=== PATIENT | female | born 1980 | race Caucasian/White ===

== ENCOUNTER 2020-06-18 04:51 | Emergency (ER) | payer OTHER ==
--- NOTE | 2020-06-18 06:52 | EDM.PDOCBH ---
ED HPI GENERAL MEDICAL PROBLEM - General Chief Complaint: Behavioral/Psych Stated Complaint: RASH,ITCHING POSS ANXIETY Time Seen by Provider: 06/18/20 05:38 Source of Information: Reports: Patient, RN Notes Reviewed - History of Present Illness INITIAL COMMENTS - FREE TEXT/NARRATIVE: 39 yr old female comes in with anxiety. This has been much worse than usual this past week with multiple panic attacks. She awakened early this morning. Unable to get back to sleep. Also has a rash mainly mid abd that is itchy. The rash was present before starting on recently prescribed buspar. She does admit to drinking a lot of coffee last evening. - Related Data Allergies Allergy/AdvReac Type Severity Reaction Status Date / Time No Known Allergies Allergy Verified 06/18/20 05:11 Home Meds: Home Meds Atenolol/Chlorthalidone [Atenolol-Chlorthalidone 100-25] 0.5 mg PO DAILY 06/18/20 [History] FLUoxetine [PROzac] 20 mg PO DAILY 06/18/20 [History] busPIRone [Buspar] 10 mg PO BID 06/18/20 [History] Past Medical History Cardiovascular History: Reports: Hypertension Respiratory History: Reports: Pneumonia, Recurrent Genitourinary History: Reports: UTI, Recurrent CABLE TESTER History: Reports: Endometrial Ablation Musculoskeletal History: Reports: Fracture Psychiatric History: Reports: Anxiety, Depression - Infectious Disease History Infectious Disease History: Reports: TB, Other (See Below) Other Infectious Disease History: latent TB in 2011- been treated - Past Surgical History HEENT Surgical History: Reports: Oral Surgery Social & Family History - Tobacco Use Tobacco Use Status *Q: Current Every Day Tobacco User Years of Tobacco use: 25 Packs/Tins Daily: 1 Used Tobacco, but Quit: No - Caffeine Use Caffeine Use: Reports: Coffee - Recreational Drug Use Recreational Drug Use: Yes Recreational Drug Type: Reports: Marijuana/Hashish Recreational Drug Use Frequency: Not Used In Over 6 Months ED ROS GENERAL - Review of Systems Review Of Systems: See Below Constitutional: Denies: Fever, Chills HEENT: Reports: No Symptoms Respiratory: Denies: Shortness of Breath, Wheezing Cardiovascular: Denies: Chest Pain GI/Abdominal: Denies: Abdominal Pain, Nausea, Vomiting Musculoskeletal: Reports: No Symptoms Skin: Reports: Pruritis, Rash Neurological: Reports: No Symptoms Psychiatric: Reports: Anxiety, Depression. Denies: Suicidal Ideation ED EXAM, BEHAVIORAL HEALTH - Physical Exam Exam: See Below General Appearance: Alert, Anxious, Mild Distress Throat/Mouth: Normal Inspection Head: Atraumatic Neck: Supple Respiratory/Chest: No Respiratory Distress, Lungs Clear, Normal Breath Sounds Cardiovascular: Regular Rate, Rhythm GI/Abdominal: Soft, Non-Tender Extremities: Normal Inspection, Normal Range of Motion Neurological: Alert, No Motor/Sensory Deficits Psychiatric: Alert, Normal Cognition, Restless (mild), Other (anxious) Skin Exam: Warm, Dry, Normal color, Rash (find macular rash present mainly mid abd. ) COURSE, BEHAVIORAL HEALTH COMP - Course Vital Signs: Last Vital Signs Temp 97.2 F 06/18/20 05:01 Pulse 84 06/18/20 05:01 Resp 20 06/18/20 05:01 BP 164/79 H 06/18/20 05:01 Pulse Ox 98 06/18/20 05:01 Orders, Labs, Meds: Laboratory Tests 06/18/20 06/18/20 Range/Units 06:04 06:04 WBC 7.58 (3.98-10.04) K/mm3 RBC 4.63 (3.98-5.22) M/mm3 Hgb 14.3 (11.2-15.7) gm/dl Hct 42.6 (34.1-44.9) % MCV 92.0 (79.4-94.8) fl MCH 30.9 (25.6-32.2) pg MCHC 33.6 (32.2-35.5) g/dl RDW Std Deviation 42.2 (36.4-46.3) fL Plt Count 277 (182-369) K/mm3 MPV 9.4 (9.4-12.3) fl Neut % (Auto) 55.3 (34.0-71.1) % Lymph % (Auto) 31.7 (19.3-51.7) % [place] % (Auto) 9.8 (4.7-12.5) % Eos % (Auto) 2.1 (0.7-5.8) Baso % (Auto) 0.4 (0.1-1.2) % Neut # (Auto) 4.20 (1.56-6.13) K/mm3 Lymph # (Auto) 2.40 (1.18-3.74) K/mm3 [place] # (Auto) 0.74 H (0.24-0.36) K/mm3 Eos # (Auto) 0.16 (0.04-0.36) K/mm3 Baso # (Auto) 0.03 (0.01-0.08) K/mm3 Sodium 141 (136-145) mEq/L Potassium 3.6 (3.5-5.1) mEq/L Chloride 103 (98-107) mEq/L Carbon Dioxide 27 (21-32) mEq/L Anion Gap 14.6 (5-15) BUN 13 (7-18) mg/dL Creatinine 0.7 (0.55-1.02) mg/dL Est Cr Clr Drug Dosing 95.17 mL/min Estimated GFR (MDRD) > 60 (>60) mL/min BUN/Creatinine Ratio 18.6 H (14-18) Glucose 112 H (70-99) mg/dL Calcium 8.9 (8.5-10.1) mg/dL Total Bilirubin 0.3 (0.2-1.0) mg/dL AST 14 L (15-37) U/L ALT 32 (14-59) U/L Alkaline Phosphatase 61 (46-116) U/L Total Protein 6.8 (6.4-8.2) g/dl Albumin 3.7 (3.4-5.0) g/dl Globulin 3.1 gm/dL Albumin/Globulin Ratio 1.2 (1-2) TSH 3rd Generation 2.566 (0.358-3.74) uIU/mL Re-Assessment/Re-Exam: potassium mildly low at 3.6. TSH and other labs are good. She states there is a lot of mental health illness that runs in her family. She feels a need to see/visit with a Psychiatrist regarding her past hx and current sx. I have suggested a telemed consult with Dr Garcia. She is very agreeable to that plan. No feelings or plan for self harm at this time. Departure - Departure Time of Disposition: 07:10 Disposition: Home, Self-Care 01 Condition: Fair Clinical Impression: Anxiety, Depressive disorder, Skin rash - Discharge Information Referrals: PCP,Not In Area [Primary Care Provider] - Forms: ED Department Discharge Additional Instructions: Your potassium was mildly low at 3.6. Try eat 1 or 2 bananas per day. Other fruit and vegetables are also high in potassium. Dry skin is itchy skin. Continue the HC cream 2 twice daily. Use lubriderm or similar scent free lotion to help itchy skin moisturized. Consider claritin or zyrtec for rash and itchiness as needed. Call [phone] for help to get an appointment for telemed consult with Dr Garcia, Psychiatrist. Follow up with Dr Hall as needed. Return to ED as needed if symptoms worsening in any way. Sepsis Event Note (ED) - Evaluation Sepsis Screening Result: No Definite Risk - Focused Exam Vital Signs: Vital Signs Temp Pulse Resp BP Pulse Ox 06/18/20 05:01 97.2 F 84 20 164/79 H 98
== END 2020-06-18 07:20 | disposition home or self-care (01) ==
LOC: JD.ED 04:51
DX: F41.9 Anxiety disorder, unspecified (principal); F32.9 Major depressive disorder, single episode, unspecified; R21 Rash and other nonspecific skin eruption; I10 Essential (primary) hypertension; Z79.899 Other long term (current) drug therapy; Z72.0 Tobacco use
CPT/HCPCS: 36415; 80053; 84443; 85025; 99283

== ENCOUNTER 2021-03-05 17:38 | Emergency (ER) | payer BC, OTHER ==
[2021-03-05] MEDS ORDERED: Ibuprofen 800 MG Tab PO ONE (21:54)
== END 2021-03-06 02:46 | disposition home or self-care (01) ==
LOC: JD.ED 17:38
DX: F32.A Depression, unspecified (principal); F41.9 Anxiety disorder, unspecified; I10 Essential (primary) hypertension; Z20.822 Contact with and (suspected) exposure to COVID-19
CPT/HCPCS: 36415; 80053; 80306; 80307; 81003; 81025; 83690; 84443; 85025; 87635; 99284; A9270; U0002

== ENCOUNTER 2023-07-06 21:47 | Emergency (ER) | payer BC, OTHER ==
[2023-07-06 23:01] LABS: APPEARANCE,URINE CLEAR (Clear); BILIRUBIN,URINE NEGATIVE (Negative); COLOR,URINE YELLOW (Yellow); GLUCOSE,URINE NEGATIVE (Negative); KETONES,URINE NEGATIVE (Negative); LEUKOCYTE ESTERASE,URINE NEGATIVE (Negative); NITRITE,URINE NEGATIVE (Negative); OCCULT BLOOD,URINE TRACE-INTACT (Negative); PROTEIN,URINE 1+ (Negative); UROBILINOGEN,URINE 0.2 (0.2-1.0)
[2023-07-06 23:18] LABS: BACTERIA,URINE MODERATE /hpf (FEW); MUCUS,URINE FEW /hpf (FEW); RBC,URINE 0-5 /hpf (0-5); SQUAMOUS EPITHELIAL CELLS,UR 0-5 /hpf (0-5); WBC,URINE 0-5 /hpf (0-5)
== END 2023-07-07 00:17 | disposition home or self-care (01) ==
LOC: JD.ED 21:47
DX: R10.2 Pelvic and perineal pain (principal); I10 Essential (primary) hypertension; F17.210 Nicotine dependence, cigarettes, uncomplicated; Z79.899 Other long term (current) drug therapy
CPT/HCPCS: 81001; 81025; 99284